=== PATIENT | male | born 1985 | race Caucasian/White ===

== ENCOUNTER 2018-01-02 22:24 | Emergency (ER) | payer SELFPAY, OTHER ==
[2018-01-03] MEDS: HYDROCODONE/APAP (10/325) TAB PO (01:02)
[2018-01-03] MEDS: DIPHTH/TET/ACEL PERTUSS (ADULT) 0.5 ML VIAL IM* (01:02)
== END 2018-01-03 02:33 | disposition home or self-care (01) ==
LOC: FTE 22:24
DX: S61.411A Laceration without foreign body of right hand, initial encounter (principal); W27.4XXA Contact with kitchen utensil, initial encounter; Y92.000 Kitchen of unspecified non-institutional (private) residence as the place of occurrence of the external cause; Z23 Encounter for immunization
CPT/HCPCS: 12002; 73130-RT; 90471; 90715; 99283-25